=== PATIENT | male | born 1995 | race Caucasian/White ===

== ENCOUNTER 2017-05-27 20:53 | Emergency (ER) | payer OTHER ==
[~2017-05-27] VITALS: Ht 170.2 cm; Wt 102.3 kg
[2017-05-27 20:57] VITALS: BP 123/70
--- NOTE | 2017-05-27 20:59 | NUR ---
PT TAKEN TO CHAIR A
--- NOTE | 2017-05-27 21:03 | NUR ---
flu swab collected and sent to lab
--- NOTE | 2017-05-27 21:12 | NUR ---
Dr. Escalera evaluating patient.
--- NOTE | 2017-05-27 21:12 | NUR ---
22Y/M PT. PRESENST TO ED WITH C/O N/V/D X 4 DAYS. PT. ALSO STATES COUGH AND FEVER FOR 4 DAYS. AAO X4, AMBULATORY WITH STDEAY GAIT. RESPIRTAIONS ROOM AIR, EVEN AND UNLABORED, BL LUNGS CLEAR. C/O NON PRODUCTIVE COUGH. NO C/O PAIN AND DISCOMFORT AT THIS TIME. VSS, ER MADE AWARE OF PT. STATUS.
[2017-05-27] MEDS ORDERED: ONDANSETRON 4 MG/2 ML VIAL IVP ONE (21:15)
[2017-05-27] MEDS ORDERED: NACL 0.9% 1,000 ML IV ONE (21:15)
--- NOTE | 2017-05-27 21:53 | NUR ---
PT AMB W/O ASST TO [facility], UA DONE
--- NOTE | 2017-05-27 22:20 | NUR ---
Patient discharged with v/s stable. Written and verbal after care instructions given and explained. Patient alert, oriented and verbalized understanding of instructions. Ambulatory with steady gait. All questions addressed prior to discharge. ID band removed. Patient advised to follow up with PMD. Rx of ZOFRAN 4 MG given. Patient educated on indication of medication including possible reaction and side effects. Opportunity to ask questions provided and answered.
[2017-05-27 22:25] VITALS: BP 116/69
== END 2017-05-27 22:20 | disposition home or self-care (01) ==
LOC: MED 20:53
DX: A08.4 Viral intestinal infection, unspecified (principal); J06.9 Acute upper respiratory infection, unspecified; R03.0 Elevated blood-pressure reading, without diagnosis of hypertension
CPT/HCPCS: 36415; 87804; 96361; 96374; 99284; J2405; J7030

== ENCOUNTER 2017-08-04 22:57 | Emergency (ER) | payer OTHER ==
[~2017-08-04] VITALS: Ht 172.7 cm; Wt 95.3 kg
[2017-08-04 23:01] VITALS: BP 132/50
[2017-08-04] MEDS ORDERED: DICYCLOMINE 20 MG/2 ML VIAL IM ONE (23:45)
[2017-08-05 00:18] LABS: ANION GAP 13.3 (8-16); CARBON DIOXIDE 28.5 mmol/L (21-32); CREATININE 1.3 mg/dL (0.7-1.3); POTASSIUM 3.8 mmol/L (3.5-5.1)
[2017-08-05 00:25] LABS: ALBUMIN 3.8 g/dL (3.4-5.0); TOTAL BILIRUBIN 0.4 mg/dL (0.0-1.0)
[2017-08-05 00:37] VITALS: BP 120/72
== END 2017-08-05 00:37 | disposition home or self-care (01) ==
LOC: MED 22:57
DX: R19.7 Diarrhea, unspecified (principal); R51 Headache; F17.210 Nicotine dependence, cigarettes, uncomplicated
CPT/HCPCS: 36415; 80053; 81002; 96372; 99283; J0500